=== PATIENT | male | born 1965 | race Caucasian/White ===

== ENCOUNTER 2017-04-23 10:46 | Emergency (ER) | payer OTHER ==
[~2017-04-23] VITALS: Ht 180.3 cm; Wt 84.2 kg
[~2017-04-23 10:46] MED LIST: AMOXICILLIN500 M1 PO; ASPIRIN BUFFER325 MG PO; ATORVASTATIN CA80 MG PO; CLOPIDOGREL75 MG PO; DILAUDID4 MG PO; DILAUDID8 MG PO; Ecotrin PO; Habitrol,Nicoderm CQ TD; LO-DOSE ASPIRIN81 M2 PO; Lipitor PO; PANTOPRAZOLE SO40 MG PO; Plavix PO; TYLENOL REGULA325 MG PO
[2017-04-23 11:04] VITALS: BP 153/87
[2017-04-23] MEDS ORDERED: AUGMENTIN875 MG PO (13:47)
== END 2017-04-23 14:24 | disposition home or self-care (01) ==
LOC: EME 10:46
PROC: 0HQDXZZ Repair Right Lower Arm Skin, External Approach (ICD-10-PCS; principal; 2017-04-23)
DX: S61.511A Laceration without foreign body of right wrist, initial encounter (principal); W54.0XXA Bitten by dog, initial encounter; F17.200 Nicotine dependence, unspecified, uncomplicated
CPT/HCPCS: 73130; 99281; 99284

== ENCOUNTER 2017-09-03 18:36 | Observation (INO) | payer OTHER ==
[~2017-09-03] VITALS: Ht 180.3 cm; Wt 79.1 kg
[~2017-09-03 18:36] MED LIST changes: +AUGMENTIN875 MG PO
[2017-09-03 19:22] LABS: HEMATOCRIT 34.4 % (38.0-50.0); MCH 31.5 PG (29.0-34.0); MCV 92.7 FL (86-99); MEAN PLAT.VOLUME 12.5 uM^3 (9.0-12.4); PLATELET COUNT 158 K/uL (156-360); RBC DIS.WIDTH-CV 14.4 % (11.8-14.6); RBC DIS.WIDTH-SD 49.1 % (39-53); RED BLOOD COUNT 3.71 M/uL (4.00-5.50); WHITE BLOOD COUNT 7.5 K/uL (4.1-10.2)
[2017-09-03 19:33] LABS: CHLORIDE 106 mEq/L (99-109); POTASSIUM 3.9 mEq/L (3.7-5.4); SODIUM 140 mEq/L (136-147)
[2017-09-03 19:35] LABS: GLUCOSE 89 mg/dL (70-99)
[2017-09-03 19:36] LABS: ANION GAP 7 MEQ/L (2-14)
[2017-09-03 19:37] LABS: TOTAL BILIRUBIN 0.4 mg/dL (0.0-1.0)
[2017-09-03 19:39] LABS: ALKALINE PHOSPHATASE 49 IU/L (3-129); GFR ESTIMATE (CALCULATED) > 59 mL/min/
[2017-09-03 19:40] LABS: UREA NITROGEN (BUN) 15 mg/dL (9-23)
[2017-09-03 19:44] LABS: TROP-I INTERPRETATION NEGATIVE; TROPONIN-I < 0.01 ng/mL (0.0-0.30)
[2017-09-03] MEDS ORDERED: HYDROMORPHONE HC4 MG PO (22:08)
[2017-09-03] MEDS ORDERED: LEVOTHYROXINE75 MCG PO (22:12)
[2017-09-03 23:38] LABS: TROP-I INTERPRETATION NEGATIVE; TROPONIN-I < 0.01 ng/mL (0.0-0.30)
[2017-09-04 01:46] VITALS: BP 144/85
[2017-09-04 05:00] VITALS: BP 140/84
[2017-09-04 05:36] LABS: TROP-I INTERPRETATION NEGATIVE; TROPONIN-I < 0.01 ng/mL (0.0-0.30)
[2017-09-04 07:00] VITALS: BP 135/90
[2017-09-04 11:03] VITALS: BP 141/92
[2017-09-04 11:23] VITALS: BP 130/78; BP 181/100
[2017-09-04] MEDS ORDERED: LOPRESSOR25 MG PO (11:40)
[2017-09-04] MEDS ORDERED: LEVOTHYROXINE100 MCG PO (11:41)
[2017-09-04 12:35] LABS: TROP-I INTERPRETATION NEGATIVE; TROPONIN-I < 0.01 ng/mL (0.0-0.30)
== END 2017-09-04 18:06 | disposition home or self-care (01) ==
LOC: EME 18:36 → EDOF 09-04 00:29 → ENRESERV 09-04 00:30 → 5WEST 09-04 01:25
PROVIDERS: Hospitalist; Physician Assistant
DX: R07.9 Chest pain, unspecified (principal); E03.9 Hypothyroidism, unspecified; I25.10 Atherosclerotic heart disease of native coronary artery without angina pectoris; I25.2 Old myocardial infarction; Z95.5 Presence of coronary angioplasty implant and graft; I10 Essential (primary) hypertension; E78.5 Hyperlipidemia, unspecified; R94.31 Abnormal electrocardiogram [ECG] [EKG]; Z87.891 Personal history of nicotine dependence; Z91.19 Patient's noncompliance with other medical treatment and regimen; Z91.14 Patient's other noncompliance with medication regimen; F17.210 Nicotine dependence, cigarettes, uncomplicated; G89.29 Other chronic pain; M54.9 Dorsalgia, unspecified; Z87.820 Personal history of traumatic brain injury; Z82.49 Family history of ischemic heart disease and other diseases of the circulatory system; Z80.51 Family history of malignant neoplasm of kidney; Z80.1 Family history of malignant neoplasm of trachea, bronchus and lung; Z80.3 Family history of malignant neoplasm of breast; Z82.3 Family history of stroke; Z88.5 Allergy status to narcotic agent; D64.9 Anemia, unspecified; Z79.82 Long term (current) use of aspirin; Z79.02 Long term (current) use of antithrombotics/antiplatelets
CPT/HCPCS: 70450; 71020; 71275; 80053; 84439; 84443; 84484; 85027; 93005; 99281; 99285; G0378